=== PATIENT | female | born 2000 | race Asian ===

== ENCOUNTER 2021-12-09 04:43 | Emergency (ER) | payer BC ==
[~2021-12-09] VITALS: Ht 172.7 cm; Wt 59.6 kg
[~2021-12-09 04:43] MED LIST: ALBU90AE INH; PRED10TA23 MT
[2021-12-09 05:35] LABS: CLARITY URINE CLOUDY (CLEAR); COLOR URINE ORANGE (YELLOW); KETONES URINE NEGATIVE (NEGATIVE); LEUKOCYTE ESTERASE URINE 3+ (NEGATIVE); NITRITE URINE POSITIVE (NEGATIVE); OCCULT BLOOD URINE 2+ (NEGATIVE); PROTEIN URINE 2+ (NEGATIVE); SPECIFIC GRAVITY URINE 1.007 (1.005-1.030)
[2021-12-09] MEDS ORDERED: KETOROLAC 60MG/2ML VIAL IM STA (05:47)
[2021-12-09] MEDS ORDERED: CEPHALEXIN 250MG CAPSULE PO ONE (06:00)
[2021-12-09 06:12] LABS: BASOPHILS % 0.1 % (0.0-2.0); EOSINOPHILS % 0.4 % (0.0-5.0); HEMATOCRIT. 36.8 % (36.0-48.0); HEMOGLOBIN. 12.5 g/dL (12.0-16.0); LYMPHOCYTES % 15.5 % (20.0-50.0); MEAN CORPUSCULAR HEMOGLOBIN 28.3 pg (28.0-32.0); MEAN PLATELET VOLUME 9.2 fl (7.4-10.4); MONOCYTES % 6.2 % (2.0-8.0); NEUTROPHILS % 77.8 % (40.0-76.0); PLATELET 230 x1000/uL (130-400); RED BLOOD CELL COUNT 4.43 mill/uL (4.2-5.4); RED CELL DISTRIBUTION WIDTH 13.6 % (11.6-14.6)
[2021-12-09 06:20] LABS: CHLORIDE 106 mEq/L (98-107)
[2021-12-09] MEDS ORDERED: AMOX-424 MT ×2 (06:50)
[2021-12-09] MEDS ORDERED: CEPH500C2 MT (06:50)
[2021-12-09] MEDS ORDERED: IBUP-2029 MT (06:50)
[2021-12-09 07:06] VITALS: BP 106/71
== END 2021-12-09 07:08 | disposition home or self-care (01) ==
LOC: ER 04:53
DX: N10 Acute pyelonephritis (principal); J45.909 Unspecified asthma, uncomplicated
CPT/HCPCS: 36415; 80053; 81003; 81025; 85025; 87077; 87086; 87186; 96372; 99283; J1885